=== PATIENT | female | born 1945 | race African-American/Black ===

== ENCOUNTER 2021-09-18 21:04 | Inpatient (IN) | payer MEDICARE, MEDICAID ==
[~2021-09-18] VITALS: Ht 165.1 cm; Wt 60.0 kg
[~2021-09-18 21:04] MED LIST: APIX5TAB PO; ATOR-2 PO; FERR325T6 MT; GABA600T MT; METF500T3 MT; METO-539 PO; OMEP20CA14 MT; SPIR25TA PO; TRAM50TA3 MT
[2021-09-18] MEDS ORDERED: VANCOMYCIN 1G PREMIX 200 ML IV ONE (21:45)
[2021-09-18] MEDS ORDERED: LEVETIRACETAM 500MG PREMIX 100 ML IV ONE (21:45)
[2021-09-18] MEDS ORDERED: SODIUM CHLORIDE 0.9% 1000ML BAG (SEPSIS BOLUS) IV ONE ×2 (21:45)
[2021-09-18] MEDS ORDERED: PIPERACILLIN/TAZ 3.375G PREMIX 50 ML IV ONE (21:45)
[2021-09-18 22:11] LABS: BG CARBOXYHEMOGLOBIN 0.3 % (0.5-1.5); BG DEOXYHEMOGLOBIN 3.8 % (0.0-5.0); BG FRACTION INSPIRED OXYGEN 36; BG HCO3 ACT 23.4 mmol/L (22.0-26.0); BG METHEMOGLOBIN 0.2 % (0.0-1.5); BG OXYGEN SATURATION 96.2 % (92.0-98.5); BG OXYHEMOGLOBIN 95.7 % (94.0-97.0); BG PCO2 30.7 mmHg (35.0-45.0); BG PO2 84.4 mmHg (75.0-100.0); BG SAMPLE SITE RIGHT RADIAL; BG TOTAL HEMOGLOBIN 12.7 g/dL (12.0-18.0); BG VENT MODE NASAL CANNULA
[2021-09-18 22:17] LABS: BASOPHILS % 0.5 % (0.0-2.0); EOSINOPHILS % 0.8 % (0.0-5.0); HEMATOCRIT. 38.9 % (36.0-48.0); HEMOGLOBIN. 12.6 g/dL (12.0-16.0); LYMPHOCYTES % 17.1 % (20.0-50.0); MEAN CORPUSCULAR HEMOGLOBIN 28.7 pg (28.0-32.0); MEAN CORPUSCULAR VOLUME 88.7 fL (81.0-99.0); MONOCYTES % 14.7 % (2.0-8.0); NEUTROPHILS % 66.9 % (40.0-76.0); RED BLOOD CELL COUNT 4.38 mill/uL (4.2-5.4); RED CELL DISTRIBUTION WIDTH 16.4 % (11.6-14.6)
[2021-09-18 22:20] LABS: CHLORIDE 105 mEq/L (98-107)
[2021-09-18 22:23] LABS: INR 1.1; PROTHROMBIN TIME 11.9 sec (9.6-11.0)
[2021-09-18 22:34] LABS: VALPROIC ACID < 3.0 ug/mL (50-100)
[2021-09-18 22:44] LABS: MEAN PLATELET VOLUME 7.5 fl (7.4-10.4); PLATELET 272 x1000/uL (130-400)
[2021-09-19] VITALS (13 sets, daily range): BP systolic 120–158; BP diastolic 62–108
[2021-09-19 00:24] LABS: CLARITY URINE CLEAR (CLEAR); COLOR URINE DARK YELLOW (YELLOW); KETONES URINE TRACE (NEGATIVE); LEUKOCYTE ESTERASE URINE TRACE (NEGATIVE); NITRITE URINE NEGATIVE (NEGATIVE); OCCULT BLOOD URINE 2+ (NEGATIVE); PH URINE 5.5 (4.5-8.0); PROTEIN URINE TRACE (NEGATIVE); SPECIFIC GRAVITY URINE 1.027 (1.005-1.030)
[2021-09-19] MEDS ORDERED: ASPIRIN 81MG TABLET GT ONE (01:30)
[2021-09-19] MEDS ORDERED: ACETAMINOPHEN 325MG TABLET PO PRN ×2 (05:00)
[2021-09-19] MEDS ORDERED: MAGNESIUM/ALUMINUM HYDROXIDE/SIMETHICONE 30ML UDC PO PRN (05:00)
[2021-09-19] MEDS ORDERED: DOCUSATE SODIUM 100MG CAPSULE PO PRN (05:00)
[2021-09-19] MEDS ORDERED: ONDANSETRON HCL 4MG/2ML INJ IV PRN (05:00)
[2021-09-19] MEDS ORDERED: MORPHINE SULFATE 2 MG/ML CPJ (NOT FOR IM USE) IV PRN (05:00)
[2021-09-19] MEDS ORDERED: DEXTROSE 50% WATER 50ML SYRINGE IV PRN (05:00)
[2021-09-19] MEDS ORDERED: CLONIDINE 0.1MG TABLET PO PRN (05:00)
[2021-09-19] MEDS ORDERED: ACETAMINOPHEN 650MG SUPP PR PRN ×2 (05:00)
[2021-09-19] MEDS ORDERED: CEFTRIAXONE 1 G PREMIX 50 ML IV SCH (05:00)
[2021-09-19] MEDS ORDERED: IPRATROPIUM/ALBUTEROL 0.5-3(2.5)MG/3ML NEB HHN PRN (05:00)
[2021-09-19] MEDS ORDERED: GUAIFENESIN 200MG/10ML SUGAR FREE UDC PO PRN (05:00)
[2021-09-19 06:05] LABS: HEMATOCRIT. 33.2 % (36.0-48.0); HEMOGLOBIN. 10.8 g/dL (12.0-16.0); MEAN CORPUSCULAR HEMOGLOBIN 28.5 pg (28.0-32.0); MEAN CORPUSCULAR VOLUME 87.9 fL (81.0-99.0); MEAN PLATELET VOLUME 7.1 fl (7.4-10.4); PLATELET 255 x1000/uL (130-400); RED BLOOD CELL COUNT 3.77 mill/uL (4.2-5.4); RED CELL DISTRIBUTION WIDTH 16.5 % (11.6-14.6)
[2021-09-19 06:12] LABS: CHLORIDE 108 mEq/L (98-107)
[2021-09-19 06:29] LABS: CREATINE KINASE 55 IU/L (26-192); HDL CHOLESTEROL 46 mg/dL (40-59); LDL CHOLESTEROL 68 mg/dL (5-100)
[2021-09-19] MEDS: INSULIN LISPRO 100 UNITS/ML SUBCUT SCH ×3 (06:43→17:22)
[2021-09-19 06:54] LABS: PLATELET ESTIMATE NORMAL
[2021-09-19] MEDS ORDERED: CEFTRIAXONE 1,000 MG in DEXTROSE 5% WATER 50 ML IV SCH (07:00)
[2021-09-19] MEDS: BLOOD SUGAR DIAGNOSTIC STRIP TEST SCH ×3 (07:09→17:22)
[2021-09-19] MEDS ORDERED: NALOXONE HCL 0.4MG/ML VIAL IV PRN (08:00)
[2021-09-19] MEDS ORDERED: ENOXAPARIN 40MG/0.4ML SYR SUBCUT SCH (09:00)
[2021-09-19] MEDS ORDERED: LEVETIRACETAM 500MG PREMIX 100 ML IV SCH (09:00)
[2021-09-19] MEDS ORDERED: ASPIRIN 81MG EC TABLET PO SCH (09:00)
[2021-09-19] MEDS ORDERED: AMLODIPINE 5MG TABLET PO SCH (09:00)
[2021-09-19] MEDS: FUROSEMIDE 40MG/4ML VIAL IV SCH (10:09)
[2021-09-19] MEDS: CEFTRIAXONE 1,000 MG in DEXTROSE 5% WATER 50 ML IV SCH (10:27)
[2021-09-19] MEDS: LEVETIRACETAM 500MG PREMIX 100 ML IV SCH ×2 (10:28→21:49)
[2021-09-19] MEDS ORDERED: DILTIAZEM HCL 60MG TABLET PO SCH (12:00)
[2021-09-19] MEDS: METRONIDAZOLE 500 MG PREMIX 100 ML IV SCH ×2 (13:22→21:48)
[2021-09-19] MEDS ORDERED: LOSA100T3 GT (15:11)
[2021-09-19] MEDS ORDERED: LANTUSUD SUBCUT (15:11)
[2021-09-19] MEDS ORDERED: KEPP500 GT (15:11)
[2021-09-19] MEDS ORDERED: LABE200T9 GT (15:11)
[2021-09-19] MEDS ORDERED: DILT180C66 GT (15:11)
[2021-09-19] MEDS: DILTIAZEM 125MG/125ML PMX 100 ML IV SCH ×2 (17:55→23:00)
[2021-09-19] MEDS: IPRATROPIUM/ALBUTEROL 0.5-3(2.5)MG/3ML NEB HHN SCH (20:57)
[2021-09-20] VITALS (15 sets, daily range): BP systolic 93–148; BP diastolic 51–87
[2021-09-20] MEDS: IPRATROPIUM/ALBUTEROL 0.5-3(2.5)MG/3ML NEB HHN SCH ×4 (02:20→21:13)
[2021-09-20] MEDS: METRONIDAZOLE 500 MG PREMIX 100 ML IV SCH ×3 (06:35→21:10)
[2021-09-20] MEDS: BLOOD SUGAR DIAGNOSTIC STRIP TEST SCH ×5 (06:36→23:43)
[2021-09-20] MEDS: INSULIN LISPRO 100 UNITS/ML SUBCUT SCH ×5 (06:37→23:46)
[2021-09-20 06:56] LABS: BASOPHILS % 0.8 % (0.0-2.0); EOSINOPHILS % 1.7 % (0.0-5.0); HEMATOCRIT. 33.1 % (36.0-48.0); HEMOGLOBIN. 10.8 g/dL (12.0-16.0); LYMPHOCYTES % 16.3 % (20.0-50.0); MEAN CORPUSCULAR HEMOGLOBIN 28.8 pg (28.0-32.0); MEAN CORPUSCULAR VOLUME 88.3 fL (81.0-99.0); MEAN PLATELET VOLUME 7.7 fl (7.4-10.4); MONOCYTES % 14.6 % (2.0-8.0); NEUTROPHILS % 66.6 % (40.0-76.0); PLATELET 253 x1000/uL (130-400); RED BLOOD CELL COUNT 3.75 mill/uL (4.2-5.4); RED CELL DISTRIBUTION WIDTH 16.4 % (11.6-14.6)
[2021-09-20 07:06] LABS: CHLORIDE 106 mEq/L (98-107)
[2021-09-20] MEDS ORDERED: POTASSIUM CHLORIDE 20MEQ/PACKET PO SCH (08:30)
[2021-09-20] MEDS: FUROSEMIDE 40MG/4ML VIAL IV SCH (09:00)
[2021-09-20] MEDS: METOPROLOL TARTRATE 25MG TABLET PO SCH ×2 (09:01→21:10)
[2021-09-20] MEDS: LEVETIRACETAM 500MG PREMIX 100 ML IV SCH (09:02)
[2021-09-20] MEDS: CEFTRIAXONE 1,000 MG in DEXTROSE 5% WATER 50 ML IV SCH (10:58)
[2021-09-20] MEDS: DILTIAZEM HCL 60MG TABLET PO SCH ×3 (12:29→23:43)
[2021-09-20] MEDS: ATORVASTATIN CALCIUM 20MG TABLET PO SCH (21:10)
[2021-09-20] MEDS: LEVETIRACETAM 500MG TABLET PO SCH (21:10)
[2021-09-21] VITALS (12 sets, daily range): BP systolic 117–154; BP diastolic 53–100
[2021-09-21] MEDS: IPRATROPIUM/ALBUTEROL 0.5-3(2.5)MG/3ML NEB HHN SCH ×3 (02:42→13:03)
[2021-09-21] MEDS: DILTIAZEM HCL 60MG TABLET PO SCH (05:25)
[2021-09-21] MEDS: METRONIDAZOLE 500 MG PREMIX 100 ML IV SCH ×3 (05:25→21:29)
[2021-09-21] MEDS: BLOOD SUGAR DIAGNOSTIC STRIP TEST SCH ×3 (05:29→18:32)
[2021-09-21] MEDS: INSULIN LISPRO 100 UNITS/ML SUBCUT SCH ×3 (05:29→18:35)
[2021-09-21] MEDS: LEVETIRACETAM 500MG TABLET PO SCH ×2 (08:11→21:03)
[2021-09-21] MEDS: FUROSEMIDE 40MG/4ML VIAL IV SCH (08:11)
[2021-09-21] MEDS: METOPROLOL TARTRATE 25MG TABLET PO SCH ×2 (08:12→21:03)
[2021-09-21 09:00] LABS: BASOPHILS % 0.5 % (0.0-2.0); EOSINOPHILS % 1.3 % (0.0-5.0); HEMATOCRIT. 33.6 % (36.0-48.0); LYMPHOCYTES % 17.2 % (20.0-50.0); MEAN CORPUSCULAR HEMOGLOBIN 28.8 pg (28.0-32.0); MEAN CORPUSCULAR VOLUME 88.3 fL (81.0-99.0); MEAN PLATELET VOLUME 7.9 fl (7.4-10.4); MONOCYTES % 13.9 % (2.0-8.0); NEUTROPHILS % 67.1 % (40.0-76.0); PLATELET 304 x1000/uL (130-400); RED BLOOD CELL COUNT 3.81 mill/uL (4.2-5.4); RED CELL DISTRIBUTION WIDTH 16.7 % (11.6-14.6)
[2021-09-21 09:37] LABS: CHLORIDE 111 mEq/L (98-107)
[2021-09-21] MEDS: CEFTRIAXONE 1,000 MG in DEXTROSE 5% WATER 50 ML IV SCH (11:12)
[2021-09-21] MEDS: DILTIAZEM HCL 90MG TABLET PO SCH ×2 (11:15→18:21)
[2021-09-21 11:29] LABS: BG BASE EXCESS -2.1 mmol/L (-2.0-2.0); BG CARBOXYHEMOGLOBIN 0.3 % (0.5-1.5); BG DEOXYHEMOGLOBIN 7.2 % (0.0-5.0); BG FRACTION INSPIRED OXYGEN 21; BG HCO3 ACT 19.9 mmol/L (22.0-26.0); BG METHEMOGLOBIN 0.3 % (0.0-1.5); BG OXYGEN SATURATION 92.8 % (92.0-98.5); BG OXYHEMOGLOBIN 92.2 % (94.0-97.0); BG PCO2 26.1 mmHg (35.0-45.0); BG PH 7.499 (7.350-7.450); BG PO2 68.5 mmHg (75.0-100.0); BG SAMPLE SITE RIGHT RADIAL; BG TOTAL HEMOGLOBIN 11.9 g/dL (12.0-18.0); BG VENT MODE ROOM AIR
[2021-09-21] MEDS: ATORVASTATIN CALCIUM 20MG TABLET PO SCH (21:03)
[2021-09-22] VITALS (15 sets, daily range): BP systolic 124–162; BP diastolic 63–114
[2021-09-22] MEDS: BLOOD SUGAR DIAGNOSTIC STRIP TEST SCH ×5 (00:50→23:49)
[2021-09-22] MEDS: DILTIAZEM HCL 90MG TABLET PO SCH ×5 (00:55→23:50)
[2021-09-22] MEDS: INSULIN LISPRO 100 UNITS/ML SUBCUT SCH ×5 (00:56→23:49)
[2021-09-22] MEDS: IPRATROPIUM/ALBUTEROL 0.5-3(2.5)MG/3ML NEB HHN SCH ×4 (01:10→20:10)
[2021-09-22] MEDS: METRONIDAZOLE 500 MG PREMIX 100 ML IV SCH ×3 (06:01→21:28)
[2021-09-22 08:02] LABS: BASOPHILS % 0.7 % (0.0-2.0); EOSINOPHILS % 1.2 % (0.0-5.0); HEMATOCRIT. 32.9 % (36.0-48.0); HEMOGLOBIN. 10.9 g/dL (12.0-16.0); LYMPHOCYTES % 11.4 % (20.0-50.0); MEAN CORPUSCULAR HEMOGLOBIN 28.9 pg (28.0-32.0); MEAN CORPUSCULAR VOLUME 87.5 fL (81.0-99.0); MEAN PLATELET VOLUME 7.9 fl (7.4-10.4); MONOCYTES % 11.8 % (2.0-8.0); NEUTROPHILS % 74.9 % (40.0-76.0); PLATELET 281 x1000/uL (130-400); RED BLOOD CELL COUNT 3.76 mill/uL (4.2-5.4); RED CELL DISTRIBUTION WIDTH 16.2 % (11.6-14.6)
[2021-09-22] MEDS: LEVETIRACETAM 500MG TABLET PO SCH ×2 (08:07→21:30)
[2021-09-22] MEDS: FUROSEMIDE 40MG TABLET PO SCH (08:08)
[2021-09-22] MEDS: METOPROLOL TARTRATE 25MG TABLET PO SCH (08:08)
[2021-09-22 08:34] LABS: CHLORIDE 112 mEq/L (98-107)
[2021-09-22] MEDS ORDERED: METOPROLOL TARTRATE 25MG TABLET PO NR (11:30)
[2021-09-22] MEDS: CEFTRIAXONE 1,000 MG in DEXTROSE 5% WATER 50 ML IV SCH (11:42)
[2021-09-22 14:31] LABS: BG CARBOXYHEMOGLOBIN 0.2 % (0.5-1.5); BG DEOXYHEMOGLOBIN 7.4 % (0.0-5.0); BG FRACTION INSPIRED OXYGEN 28; BG HCO3 ACT 26.2 mmol/L (22.0-26.0); BG OXYGEN SATURATION 92.6 % (92.0-98.5); BG OXYHEMOGLOBIN 92.4 % (94.0-97.0); BG PCO2 31.3 mmHg (35.0-45.0); BG PO2 63.1 mmHg (75.0-100.0); BG SAMPLE SITE RIGHT RADIAL; BG VENT MODE NASAL CANNULA
[2021-09-22] MEDS ORDERED: IOHEXOL-350 100 ML BOTTLE ONE (19:40)
[2021-09-22] MEDS: ENOXAPARIN 60MG/0.6ML SYR SUBCUT SCH (21:30)
[2021-09-22] MEDS: METOPROLOL TARTRATE 50MG TABLET PO SCH (21:30)
[2021-09-22] MEDS: ATORVASTATIN CALCIUM 20MG TABLET PO SCH (21:30)
[2021-09-22 23:30] LABS: HEMATOCRIT 32.4 % (36.0-48.0); HEMOGLOBIN 10.5 g/dL (12.0-16.0)
[2021-09-23] VITALS (12 sets, daily range): BP systolic 104–157; BP diastolic 57–91
[2021-09-23] MEDS: IPRATROPIUM/ALBUTEROL 0.5-3(2.5)MG/3ML NEB HHN SCH ×4 (02:00→20:34)
[2021-09-23] MEDS: INSULIN LISPRO 100 UNITS/ML SUBCUT SCH ×4 (05:25→23:05)
[2021-09-23] MEDS: BLOOD SUGAR DIAGNOSTIC STRIP TEST SCH ×4 (05:25→23:04)
[2021-09-23] MEDS: METRONIDAZOLE 500 MG PREMIX 100 ML IV SCH ×3 (05:25→22:12)
[2021-09-23] MEDS: DILTIAZEM HCL 90MG TABLET PO SCH ×4 (05:26→23:04)
[2021-09-23 07:10] LABS: BASOPHILS % 0.8 % (0.0-2.0); EOSINOPHILS % 1.8 % (0.0-5.0); HEMATOCRIT. 34.6 % (36.0-48.0); HEMOGLOBIN. 11.3 g/dL (12.0-16.0); LYMPHOCYTES % 20.1 % (20.0-50.0); MEAN CORPUSCULAR HEMOGLOBIN 28.3 pg (28.0-32.0); MEAN CORPUSCULAR VOLUME 86.6 fL (81.0-99.0); MEAN PLATELET VOLUME 8.3 fl (7.4-10.4); MONOCYTES % 10.3 % (2.0-8.0); PLATELET 332 x1000/uL (130-400); RED BLOOD CELL COUNT 3.99 mill/uL (4.2-5.4); RED CELL DISTRIBUTION WIDTH 16.1 % (11.6-14.6)
[2021-09-23 07:56] LABS: CHLORIDE 109 mEq/L (98-107)
[2021-09-23] MEDS: FUROSEMIDE 40MG TABLET PO SCH (08:32)
[2021-09-23] MEDS: LEVETIRACETAM 500MG TABLET PO SCH ×2 (08:32→22:12)
[2021-09-23] MEDS: ENOXAPARIN 60MG/0.6ML SYR SUBCUT SCH ×2 (08:32→21:00)
[2021-09-23] MEDS: METOPROLOL TARTRATE 50MG TABLET PO SCH ×2 (08:33→22:12)
[2021-09-23] MEDS ORDERED: POTASSIUM CHLORIDE INJ 40 MEQ in DEXT 5% WATER 250 ML IV ONE (11:00)
[2021-09-23] MEDS: CEFTRIAXONE 1,000 MG in DEXTROSE 5% WATER 50 ML IV SCH (13:55)
[2021-09-23] MEDS: ATORVASTATIN CALCIUM 20MG TABLET PO SCH (22:12)
[2021-09-24] VITALS (17 sets, daily range): BP systolic 113–155; BP diastolic 61–92
[2021-09-24] MEDS: IPRATROPIUM/ALBUTEROL 0.5-3(2.5)MG/3ML NEB HHN SCH ×4 (01:02→21:13)
[2021-09-24] MEDS: DILTIAZEM HCL 90MG TABLET PO SCH ×3 (05:19→17:29)
[2021-09-24] MEDS: METRONIDAZOLE 500 MG PREMIX 100 ML IV SCH ×2 (05:19→15:25)
[2021-09-24] MEDS: BLOOD SUGAR DIAGNOSTIC STRIP TEST SCH ×3 (05:19→17:30)
[2021-09-24] MEDS: INSULIN LISPRO 100 UNITS/ML SUBCUT SCH ×3 (05:20→17:30)
[2021-09-24 07:04] LABS: BASOPHILS % 0.7 % (0.0-2.0); EOSINOPHILS % 3.1 % (0.0-5.0); HEMATOCRIT. 35.8 % (36.0-48.0); HEMOGLOBIN. 11.8 g/dL (12.0-16.0); LYMPHOCYTES % 19.3 % (20.0-50.0); MEAN CORPUSCULAR HEMOGLOBIN 28.6 pg (28.0-32.0); MEAN CORPUSCULAR VOLUME 87.2 fL (81.0-99.0); MONOCYTES % 8.7 % (2.0-8.0); NEUTROPHILS % 68.2 % (40.0-76.0); PLATELET 370 x1000/uL (130-400); RED BLOOD CELL COUNT 4.11 mill/uL (4.2-5.4); RED CELL DISTRIBUTION WIDTH 16.1 % (11.6-14.6)
[2021-09-24 07:24] LABS: CHLORIDE 107 mEq/L (98-107)
[2021-09-24] MEDS: LEVETIRACETAM 500MG TABLET PO SCH ×2 (08:53→20:39)
[2021-09-24] MEDS: FUROSEMIDE 40MG TABLET PO SCH (08:53)
[2021-09-24] MEDS: METOPROLOL TARTRATE 100MG TABLET PO SCH ×2 (08:57→20:39)
[2021-09-24] MEDS: ENOXAPARIN 60MG/0.6ML SYR SUBCUT SCH ×2 (08:58→20:39)
[2021-09-24] MEDS ORDERED: POTASSIUM CHLORIDE 20MEQ TABLET SR PO SCH (09:00)
[2021-09-24] MEDS ORDERED: LIDOCAINE HCL 1% 10 MG/ML 10ML VIAL ONE (10:08)
[2021-09-24] MEDS ORDERED: IOHEXOL-300 100 ML BOTTLE ONE (10:08)
[2021-09-24] MEDS: CEFTRIAXONE 1,000 MG in DEXTROSE 5% WATER 50 ML IV SCH (13:16)
[2021-09-24] MEDS: ATORVASTATIN CALCIUM 20MG TABLET PO SCH (20:39)
[2021-09-25] VITALS (11 sets, daily range): BP systolic 103–147; BP diastolic 57–91
[2021-09-25] MEDS: DILTIAZEM HCL 90MG TABLET PO SCH ×4 (00:04→17:28)
[2021-09-25] MEDS: INSULIN LISPRO 100 UNITS/ML SUBCUT SCH ×4 (00:05→17:40)
[2021-09-25] MEDS: BLOOD SUGAR DIAGNOSTIC STRIP TEST SCH ×4 (00:05→17:32)
[2021-09-25] MEDS: IPRATROPIUM/ALBUTEROL 0.5-3(2.5)MG/3ML NEB HHN SCH ×3 (01:09→14:15)
[2021-09-25 06:41] LABS: BASOPHILS % 0.7 % (0.0-2.0); EOSINOPHILS % 1.6 % (0.0-5.0); HEMATOCRIT. 36.9 % (36.0-48.0); HEMOGLOBIN. 12.1 g/dL (12.0-16.0); LYMPHOCYTES % 19.1 % (20.0-50.0); MEAN CORPUSCULAR HEMOGLOBIN 28.2 pg (28.0-32.0); MEAN PLATELET VOLUME 8.2 fl (7.4-10.4); MONOCYTES % 6.3 % (2.0-8.0); NEUTROPHILS % 72.3 % (40.0-76.0); PLATELET 385 x1000/uL (130-400); RED BLOOD CELL COUNT 4.29 mill/uL (4.2-5.4); RED CELL DISTRIBUTION WIDTH 15.8 % (11.6-14.6)
[2021-09-25 07:06] LABS: CHLORIDE 103 mEq/L (98-107)
[2021-09-25] MEDS: FUROSEMIDE 40MG TABLET PO SCH (08:20)
[2021-09-25] MEDS: LEVETIRACETAM 500MG TABLET PO SCH (08:20)
[2021-09-25] MEDS: ENOXAPARIN 60MG/0.6ML SYR SUBCUT SCH (08:20)
[2021-09-25] MEDS: METOPROLOL TARTRATE 100MG TABLET PO SCH (08:20)
[2021-09-25] MEDS ORDERED: POTASSIUM CHLORIDE 20MEQ TABLET SR PO NR (09:15)
[2021-09-25] MEDS ORDERED: ATOR20TA PO (15:52)
[2021-09-25] MEDS ORDERED: FURO40TA5 PO (15:52)
[2021-09-25] MEDS ORDERED: DILT90TA2 PO (15:52)
[2021-09-25] MEDS ORDERED: KEPP500 PO (15:52)
[2021-09-25] MEDS ORDERED: METO100T16 PO (15:52)
[2021-09-25] MEDS ORDERED: INSLIS SUBCUT (15:52)
[2021-09-25] MEDS ORDERED: IPRA3AMP9 HHN (15:52)
== END 2021-09-26 03:09 | DRG 871 ==
LOC: ER 21:04 → MICUSO 09-19 01:25 → 5EST 09-19 09:29
PROVIDERS: ADMIT Family Medicine Adult Medicine; ATTEND Family Medicine Adult Medicine
PROC: 06H03DZ Insertion of Intraluminal Device into Inferior Vena Cava, Percutaneous Approach (ICD-10-PCS; principal; 2021-09-24)
PROC: B5191ZA Fluoroscopy of Inferior Vena Cava using Low Osmolar Contrast, Guidance (ICD-10-PCS; 2021-09-24)
PROC: 4A00X4Z Measurement of Central Nervous Electrical Activity, External Approach (ICD-10-PCS; 2021-09-26)
DX: A41.89 Other specified sepsis (principal); E43 Unspecified severe protein-calorie malnutrition; G93.41 Metabolic encephalopathy; J69.0 Pneumonitis due to inhalation of food and vomit; I26.99 Other pulmonary embolism without acute cor pulmonale; J96.01 Acute respiratory failure with hypoxia; J12.9 Viral pneumonia, unspecified; E87.1 Hypo-osmolality and hyponatremia; I48.20 Chronic atrial fibrillation, unspecified; D68.59 Other primary thrombophilia; I82.403 Acute embolism and thrombosis of unspecified deep veins of lower extremity, bilateral; R47.01 Aphasia; I69.351 Hemiplegia and hemiparesis following cerebral infarction affecting right dominant side; I11.0 Hypertensive heart disease with heart failure; Z20.822 Contact with and (suspected) exposure to COVID-19; I50.9 Heart failure, unspecified; E11.9 Type 2 diabetes mellitus without complications; G40.909 Epilepsy, unspecified, not intractable, without status epilepticus; D64.9 Anemia, unspecified; N93.9 Abnormal uterine and vaginal bleeding, unspecified; R90.82 White matter disease, unspecified; R26.89 Other abnormalities of gait and mobility; R13.10 Dysphagia, unspecified; Z82.49 Family history of ischemic heart disease and other diseases of the circulatory system; Z79.01 Long term (current) use of anticoagulants; Z74.01 Bed confinement status; Z68.22 Body mass index [BMI] 22.0-22.9, adult; Z93.1 Gastrostomy status; Z95.828 Presence of other vascular implants and grafts
CPT/HCPCS: 36415; 36600; 37191; 70551; 71045; 71275; 76856; 80048; 80053; 80061; 80165; 81003; 82140; 82375; 82550; 82805; 82962; 83036; 83605; 83735; 83880; 84145; 84443; 84484; 85014; 85018; 85025; 86850; 86900; 87426; 92610; 93005; 93306; 93970; 94640; 97161; 97162; 97165; 97166; 99285; C1769; C1880; J0696; J1644; J1650; J1815; J1940; J1953; J2405; J2543; J3370; J3480; J3490; J7030; J7060; Q9967; A4315